=== PATIENT | male | born 1980 ===

== ENCOUNTER 2018-04-30 07:54 | Inpatient (IN) | payer OTHER ==
[2018-04-18 09:03] VITALS: BMI 43.9
[~2018-04-30 07:54] MED LIST: Absorbable Gelatin Sponge Size 100 ONE; Bacitracin 50,000 UNIT in Sodium Chloride 0.9% Irrig 1,000 ML IR SCH; Bupivacaine HCl 0.5% PF (30 ml) Inj ONE; Lidocaine/Epinephrine 1% 1:100000 10 ML IJ ONE; Propofol 10 mg/ml 1,000 MG/100 ML VIAL ONE; Thrombin Topical 5,000 Int Units Spray Kit ONE; Vancomycin 1 gm/D5W 200 ml 0 GM/0 ML BAG IVPB ONE; ceFAZolin IV 1 gm in Dextrose 2 GM/100 ML BAG IVPB ONE
[2018-04-30] MEDS ORDERED: Calcium Gluconate 4.65 mEq/10 ml Inj ONE (09:35)
[2018-04-30] MEDS ORDERED: Absorbable Gelatin Sponge Size 12-7 ONE (09:36)
[2018-04-30] MEDS ORDERED: Midazolam 2 MG/2 ML VIAL ONE (10:38)
[2018-04-30] MEDS ORDERED: Propofol 10 mg/ml Inj (20 ML) ONE ×4 (10:38→11:48)
[2018-04-30] MEDS ORDERED: Succinylcholine Chloride 20 mg/ml Syr (5 ml) IV ONE (11:13)
[2018-04-30] MEDS ORDERED: ePHEDrine 50 mg/ml Inj ONE (11:13)
[2018-04-30] MEDS ORDERED: Lidocaine 4% (Laryng-O-Jet) Kit MM ONE (11:13)
[2018-04-30] MEDS ORDERED: Propofol 10 mg/ml 1,000 MG/100 ML VIAL ONE (12:02)
[2018-04-30] MEDS: HYDROmorphone 0.5 mg/0.5 ml ISec IVP PRN ×3 (14:08→15:25)
[2018-04-30] MEDS: Potassium Ch 20mEq in D5-1/2NS 1,000 ML IV SCH (15:34)
[2018-04-30] MEDS: Oxycodone/Acetaminophen 5/325 mg Tab PO PRN (20:20)
[2018-05-01] MEDS: Potassium Ch 20mEq in D5-1/2NS 1,000 ML IV SCH ×4 (00:45→14:00)
[2018-05-01 00:48] VITALS: RESP 20
--- NOTE | 2018-05-01 08:25 | OP ---
PROCEDURE DATE: 04/30/2018 PREOPERATIVE DIAGNOSIS: Herniated disk, C3-C4, C4-C5. POSTOPERATIVE DIAGNOSIS: Herniated disk, C3-C4, C4-C5 PROCEDURE: C3-C4, C4-C5 anterior discectomy, fixation and fusion. SURGEON: Keith Vincent MD CO-SURGEON: Hernan Shirley MD ANESTHESIA: General endotracheal. ESTIMATED BLOOD LOSS: 50 mL. COMPLICATIONS: None. JUSTIFICATION: The patient is status post an accident, ever since he is suffering with severe neck pain and was found to have disk herniation C2 level with cord compression, specifically at 3-4, there was some annular tear; at 4-5, there was multiple broad based herniation present upon the cord. The patient has failed conservative treatment. He was offered the possibility of operative intervention via diskectomy, fixation, and fusion. The nature of this procedure, the rationale behind it, potential risks and complications, realistic chance of excessive recovery time discussed with her at length. All his questions were answered. He fully understood all the above and elected to proceed as offered. PROCEDURE: The patient was brought into the operating room. He was intubated and anesthetized. He was hooked up to neurophysiological monitoring, carefully placed on the OR table in a supine position, head placed in very mild extension, pre and post positioning evoked potentials were taken which were unchanged. The shoulders were gently tapped down. Incision was localized with lateral fluoroscopy overlying the C4 vertebral body. This was traced out. The entire throat was then scrubbed with acetone and scrubbing and draping in the usual sterile fashion. After prepping and draping, incision was made with a #15 blade knife, approximately 4 to 5 cm in length. The platysma was exposed, opened in the direction of its fibers. Dissection was carried out in planes between the sternocleidomastoid and carotid laterally, the trachea and esophagus medially to encounter the anterior spine, this was cleared with Kittner elevator. Daisy were placed in the exposed disc spaces, which were fluoroscopically confirmed to be the correct at 3-4 and 4-5 levels. At this point, the longus colli muscles were stripped laterally bilaterally. The self-retaining Beaver type retracting system was placed. The anesthesiologist had to deflate the ET tube. Each disk was then incised grossly and the disk material, with the use of pituitary rongeurs and various sized curettes This was done with the assistance of an intervertebral retractor and then the microscope was brought in. Under microscopic vision first at 3-4, we used some micro curettes to further remove disk material until we got down to the posterior annulus and the posterior longitudinal ligament. Ultimately, we were able to tease a 1 mm Kerrison rongeur behind the ligament and this identified nearby decompressed the anterior dura, 1 and 2 mm Kerrison rongeurs were used to complete this process, some of the endplate above and below are removed, generous foraminotomy was performed laterally bilaterally. A blunt nerve hook was then used to inspect the decompression, i.e.., each foramina and behind each vertebral body to confirm complete decompression which was adequate. We then measured the depth of the disk space and achieved hemostasis with thrombinated powdered Gelfoam. This identical procedure was then performed again at the C4-C5 level. It was certainly more of an indent but again we used a 1 mm Kerrison rongeur to tease behind the posterior longitudinal ligament, identify and then decompress the anterior dura from side to side with 1 mm and 2 mm Kerrison rongeurs, some of the endplate above and below were removed. Generous foraminotomies were performed laterally bilaterally. Blunt nerve hook was used to ensure the decompression was complete behind each vertebral body and out each foramen. Thrombinated Gelfoam was then again used to complete hemostasis. At this point, we trialed two 5-mm implants in each level which were found to be adequate. We harvested some bone marrow from the anterior C5 vertebrae by making this more punctural and using an 18-gauge needle to aspirate several mL of bone marrow. This was then impregnated upon a collagen hydroxyapatite sponges using the fusion. We then used the marrow sterile sponge with some additional bone matrix study to fill the ranch helper. We then used a rasp instrument to decorticate the endplate above and below each level and then placed these two 5-mm implants at each interbody space. They were tapped until it was well countersunk. This was confirmed visually and fluoroscopically. At this point, we turned our attention to the plating procedure. We used a 30 to 40 mm DePuy Uniplate. Lateral fluoroscopy was used to guide the placement of 16 mm screw, sequentially into the plate through the C4, C3, and C5. Final x-rays confirmed super position of the entire construct, the overlying plate, the three intravertebral screws, and the 2 interbody grafts, three screw head locking mechanism tightened. The retractor was withdrawn. Some small bleeding points primarily along the longus colli and muscles were coagulated with bipolar cautery. The cavity was observed for several minutes to ensure that hemostasis was complete. The wound was irrigated multiple times. The cavity then filled with some thrombinated powdered Gelfoam with some additional liquid thrombin. The muscle was reapproximated using interrupted 0 Vicryl, the subcu closed using interrupted inverted 2-0 Vicryl. The skin was closed with a running 4-0 Monocryl stitch, benzoin, and Steri-Strips. The dressing was applied as was the soft collar. The patient was easily extubated, noted to be moving all 4 lower extremities in good strength on his way to recovery room. Neurophysiological monitoring including somatosensory and motor evoked potentials remained stable over the course of the procedure. There were no complications. Keith Vincent MD
[2018-05-01] MEDS: Oxycodone/Acetaminophen 5/325 mg Tab PO PRN (09:16)
--- NOTE | 2018-05-01 09:23 | RAD ---
PROCEDURE: HISTORY: As Above COMPARISON: None TECHNIQUE: Total fluoroscopic time utilized during the procedure: 46.2 seconds. Total dose 0.83917 mGy cm squared FINDINGS: Submitted images from the current procedure: 4 Please refer to the physician's notes performing the procedure. IMPRESSION: Less than 1 hour fluoroscopic time utilized during performance of the procedure
--- NOTE | 2018-05-01 09:31 | CP.PCM.PN ---
Subjective - Date & Time of Evaluation Date of Evaluation: 05/01/18 Time of Evaluation: 09:29 - Subjective Subjective: doing verry well min complaints dsg c and d dominguez with good strength P dc f/u office i wk Objective - Vital Signs/Intake and Output Vital Signs (last 24 hours): Temp Pulse Resp BP Pulse Ox 98.6 F 89 20 122/76 96 05/01/18 07:30 05/01/18 09:16 05/01/18 07:30 05/01/18 09:16 05/01/18 07:30 Intake and Output: 05/01/18 05/01/18 06:59 18:59 Intake Total 1620 Output Total 1500 Balance 120 - Medications Medications: Current Medications Potassium Chloride/Dextrose/Sod Cl (Potassium Chl 20 Meq In D5-1/2ns) 1,000 mls @ 100 mls/hr IV .Q10H ADARSH Last Admin: 05/01/18 02:19 Dose: 100 mls/hr Ondansetron HCl (Zofran Inj) 4 mg IVP Q6 PRN PRN Reason: Nausea/Vomiting Oxycodone/Acetaminophen (Percocet 5/325 Mg Tab) 2 tab PO Q4H PRN PRN Reason: Pain, moderate (4-7) Stop: 05/03/18 14:42 Last Admin: 05/01/18 09:16 Dose: 2 tab Pneumococcal Polyvalent Vaccine (Pneumovax 23 Vaccine) 0.5 ml IM .ONCE ONE Stop: 05/02/18 10:01
[2018-05-01 15:27] VITALS: BP 123/81; PULSE 79; TEMP 97.8; O2SAT 98
--- NOTE | 2018-05-02 06:41 | OP ---
PROCEDURE DATE: 04/30/2018 PREOPERATIVE DIAGNOSIS: Herniated disc with cord compression C3-4 and C4-5. POSTOPERATIVE DIAGNOSIS: Herniated disc with cord compression C3-4 and C4-5. OPERATION PERFORMED: 1. Anterior cervical diskectomy C3-C4, C4-C5. 2. Anterior cervical fusion C3-C4, C4-C5. 3. Use of intervertebral devices. 4. Use of spinal instrumentation. 5. Use of autograft by means of bone marrow aspiration. SURGEON: Hernan Shirley MD CO- SURGEON: Keith Vincent MD. TYPE OF ANESTHESIA: General endotracheal tube intubation. DESCRIPTION OF PROCEDURE: The patient was brought to the operative room and placed on the operating table in supine position. General anesthesia was achieved, and the patient was intubated without any excessive extension of his neck. Intravenous antibiotics were administered and the spinal cord monitoring leads were placed throughout the patient's body. Real-time monitoring was done by a tire and lube technician in the room and remote monitoring done by a physician as well. Sequential compression boots are placed to each of the patient's legs. The patient's arms are well-padded and secured at the side with the shoulders tapped down. A small role was placed beneath the patent's scapula to obtain some gentle extension, and the patient's neck was washed and then sterilely prepped and draped. The level of the incision was noted under fluoroscopy, infiltrated of lidocaine with epinephrine. An incision was made sharply from the midline to the left along Marion's line and taken down through subcutaneous tissue using sharp and blunt dissection. Hemostasis was achieved using electrocautery. The platysma was divided in a vertical fashion and mobilized in all directions. A plane was then bluntly developed down to the anterior cervical vertebral bodies. The carotid was identified and gently retracted laterally and the midline structures medially. Prevertebral fascia was moved using electrocautery as well as Metzenbaum scissors and peanut sponge. Matador were placed and were felt to be at C4-C5 and C5-C6 disks and this was confirmed under fluoroscopy. As the needles were removed, the annuli were marked. The longus colli muscles were cauterized and stripped back with a small fortune elevator. Self-retaining Trimline retractors were placed in the wound with excellent visualization in the operative field. Another fluoroscopic view with needles in the disk confirmed we were at the correct levels. At that time, the endotracheal cuff was deflated and reinflated minimally in order to help avoid compression injury in the surrounding structures. The annuli was then sharply incised and disc material removed at each level using a pituitary rongeur and small curette. Small Lamina Spreaders were used to open up the disc space sequentially side to side at each level and towards the posterior margins at each disc, and at that time, the operating microscope was brought onto field with the rest of decompression done under microscopic visualization. A 1 and 2 mm Kerrison rongeurs were used to remove the remaining wastages of disk and annulus along the posterior longitudinal ligament. There appear to be a lot of pressure against the dura, particularly at the C4-5 level. Foraminotomies were carried out until we could easily pass the blunt tipped nerve hook at each side. The decompression was done as well until we could sweep the nerve hook beneath the vertebral bodies above and below at each level. Each disk space is copiously irrigated with antibiotic solution. Hemostasis was achieved with thrombinated Gelfoam powder. At that time, we proceeded with fusion. Needle was placed in the vertebral body and bone marrow aspirate was obtained and used to soak a cube of Conform sponge. Bone wax was used for hemostasis. Trials were done and a size 5 regular BENGAL cage was found to be the best fit at each level. While the rasp was used at each level, the canals of the cages were packed with a marrow-soaked piece of Conform and coated with Optium gel. Each cage was then tamped into place and countersunk. Fluoroscopic view showed them to be in good position. A 34 mm Uniplate was then fixed in the vertebral body using 60 mm screws. Final fluoroscopic view showed excellent position of the hardware. The screws were locked into place and the wound was copiously irrigated with antibiotic solution. Hemostasis was achieved with thrombinated Gelfoam powder as well as bipolar cautery. The wound was closed in layers with interrupted sutures of 3-0 Vicryl for the platysma and the subcutaneous tissue and a running subcuticular suture with 4-0 Monocryl for the skin. Steri-Strips and sterile dressings were applied along with the soft cervical collar. The patient was then awakened and extubated. He was transferred to his bed and taken to recovery room in stable condition. He tolerated the procedure well. Estimated blood loss was 50 mL, and he received 1500 mL of crystalloid during the procedure. He was actively moving all the extremities at the time of his transfer and no permanent electrophysiologic abnormalities were noted at the completion of the case. Hernan Shirley MD
[2018-05-02] MEDS ORDERED: Pneumococcal 23-Valent Vaccine IM ONE (10:00)
== END 2018-05-01 15:27 | disposition home or self-care (01) | DRG 472 ==
LOC: C.SDS 07:54 → C.9E 14:39 → C.9S 14:55 → C.6T 16:22
PROVIDERS: ADMIT Neurological Surgery; ATTEND Neurological Surgery
PROC: 07DS3ZZ Extraction of Vertebral Bone Marrow, Percutaneous Approach (ICD-10-PCS; 2018-04-30)
PROC: 0RB30ZZ Excision of Cervical Vertebral Disc, Open Approach (ICD-10-PCS; principal; 2018-04-30 10:30)
PROC: 0RG2070 Fusion of 2 or more Cervical Vertebral Joints with Autologous Tissue Substitute, Anterior Approach, Anterior Column, Open Approach (ICD-10-PCS; 2018-04-30 10:30)
DX: M50.21 Other cervical disc displacement, high cervical region (principal); Z68.41 Body mass index [BMI] 40.0-44.9, adult; M50.221 Other cervical disc displacement at C4-C5 level